=== PATIENT | male | born 1965 | race Caucasian/White ===

== ENCOUNTER 2020-05-15 07:53 | Day surgery (SDC) | payer BC ==
[~2020-05-15] VITALS: Ht 182.9 cm; Wt 83.9 kg
--- NOTE | ~2020-05-15 | OP ---
PATIENT NAME: GÓMEZ ANTONIO MEDICAL RECORD: [id number] :61 LOCATION:[facility] ADMISSION DATE: SURGEON: CHANTAL SAHNI MD DATE OF OPERATION: 05/15/2020 PREOPERATIVE DIAGNOSIS: Retained foreign body, bilateral hands with lacerations to the fingers. POSTOPERATIVE DIAGNOSIS: Retained foreign body, bilateral hands with lacerations to the fingers. PROCEDURE PERFORMED: 1. Incision and debridement of skin and subcutaneous tissue, right index finger. 2. Incision and debridement of skin and subcutaneous tissue, right long finger. 3. Incision and debridement of skin and subcutaneous tissue, left ring finger. INDICATIONS: Mr. Antonio is a 54-year-old male with history of injury to his hands approximately 1 week ago. He was going to place a window in the trash when the glass shattered and shards of glass stuck into his fingers. He has wounds to the right index finger and long finger and the left ring finger. There was concern for beginning infection. He was seen by Dr. Gray earlier this week and he was started on antibiotics, which he has been taking. There does not appear to be any significant infection, but he does feel like there is still some retained piece of glass in his fingers. These are not visible on x-ray, but we talked about continued conservative versus surgical management. He would like to proceed with surgery for I and D. Risks, benefits and alternatives of surgery discussed with the patient and consent was obtained. DESCRIPTION OF PROCEDURE: The patient was met in the holding area where his identity and confirmation of procedure was performed. The upper extremities were marked. He was taken to the operating room where he was placed supine on the operating table. Anesthesia was administered. Tourniquet was applied to both arms. The patient received preoperative antibiotics and timeout was performed for initiation of the case. The right arm was exsanguinated and the tourniquet was raised. Total tourniquet time was 42 minutes. Wounds to the index finger, the tip of the finger as well as the radial side of the long finger near the TIP joint are opened and the eschar from around these blister type wounds was debrided. A full thickness opening was made and the tissues were explored. I did not appreciate any retained foreign bodies. There was no evidence of deep infection. These were all irrigated thoroughly with saline and then closed with a simple Prolene sutures. Digital blocks were then performed to the index and long fingers. A sterile dressing was then placed and wrapped with gauze. We then moved to the left arm. The left arm was exsanguinated and tourniquet was raised. Total tourniquet time was 10 minutes. Incision to the tip of the ring finger was made and a portion of that eschar was excised. Again, this was completed, full thickness and there did not appear to be any deep retained foreign bodies. The wound was irrigated thoroughly with saline. There is no evidence of deep infection. This was then closed with simple Prolene suture and again a digital block was performed. Sterile dressing was placed. The patient was turned back over to anesthesia where he was awakened, extubated, and taken to recovery room in stable condition. POSTOPERATIVE PLAN: The patient is going to return home with his family. He was instructed to keep these incisions clean and dry. OPERATIVE REPORT [id number] GÓMEZ ANTONIO Continue with his current antibiotics. We will plan to see him back in 1 week. Should he develop any signs and symptoms concerning for worsening infection, he is to notify us immediately. ANESTHESIA: General and local. COMPLICATIONS: None. ESTIMATED BLOOD LOSS: 10 mL. TRANSINT:[id number] Voice Confirmation ID: [id number] DOCUMENT ID: [id number] CHANTAL SAHNI MD CC: [id number] DICTATION DATE: 05/16/20 1535 USED CAR SALESPERSON: 05/16/20 [id number] [facility] 05/15/20 [place] [id number] [place] [id number]
[~2020-05-15 07:53] MED LIST: BUDESONIDE PO; DELZICOL400 M1 PO; HUMIRA INJ; IMURAN50 MG PO; PREDNISONE10 MG PO; VIBRAMYCIN 100100 MG PO
[2020-05-15 08:31] LABS: HEMOGLOBIN 12.6 g/dL (13.5-17.5); MCH 29.6 pg (26.0-34.0); MCHC 31.5 g/dL (31.0-37.0); MCV 94.1 fL (80.0-100.0); MEAN PLATELET VOLUME 8.9 fL (7.4-10.4); RBC 4.25 10x6/uL (4.20-6.10); RDW 16.2 % (11.5-14.5); WBC 6.6 10x3/uL (4.8-10.8)
[2020-05-15 08:39] LABS: CALC OSMOLALITY 279 mosm/kg (275-300); CALCIUM 8.8 mg/dL (8.5-10.1); CARBON DIOXIDE 31.4 mmol/L (21.0-32.0); CHLORIDE - SERUM 104 mmol/L (98-107); CREATININE - SERUM 0.9 mg/dL (0.6-1.3); GLUCOSE 146 mg/dL (74-106); POTASSIUM - SERUM 4.1 mmol/L (3.5-5.1); SODIUM 139 mmol/L (136-145); UREA NITROGEN 9 mg/dL (7-18); eGFR NON AFRICAN AMERICAN > 90 mL/min (90-120)
[2020-05-15 09:01] VITALS: BP 131/81; Ht 182.9 cm; Wt 83.9 kg
--- NOTE | 2020-05-15 14:04 | NUR ---
1348-VSS.DENIES PAIN.DRESSING TO [place] [facility]. NO DISTRESS. VOIDED WITHOUT COMPLICATION. NO N/V. REMOVED IV WITH CATH INTACT,DISPOSED INTO SHARPS,COVERED WITH GUAZE,SECURED WITH MEDIPORE TAPE. REVIEWED POST OP INSTRUCTIONS AND FOLLOW UP APPOINTMENT WITH PT AND MOTHER AT BEDSIDE.
--- NOTE | 2020-05-15 14:06 | NUR ---
1359-PT DRESSED. ESCORTED OUT VIA W/C BY STAFF WITH MOTHER AWAITING TO DRIVE HOME.
== END 2020-05-15 13:59 | disposition home or self-care (01) ==
LOC: D.OPS 07:53 → D.PAN 09:45 → D.OPS 09:45 → D.PAN 10:00 → D.OPS 10:00
PROVIDERS: Anesthesiology; ATTEND Orthopaedic Surgery
DX: S61.220A Laceration with foreign body of right index finger without damage to nail, initial encounter (principal); S61.224A Laceration with foreign body of right ring finger without damage to nail, initial encounter; S61.222A Laceration with foreign body of right middle finger without damage to nail, initial encounter; X58.XXXA Exposure to other specified factors, initial encounter; J45.909 Unspecified asthma, uncomplicated